=== PATIENT | male | born 1985 | race Caucasian/White ===

== ENCOUNTER 2017-11-21 19:35 | Emergency (ER) | payer OTHER ==
[~2017-11-21] VITALS: Ht 167.6 cm; Wt 79.8 kg
[2017-11-21 19:39] VITALS: Ht 167.6 cm; Wt 79.8 kg
[2017-11-21 21:10] VITALS: BP 122/66
== END 2017-11-21 21:10 | disposition home or self-care (01) ==
LOC: ED 19:35
DX: S60.562A Insect bite (nonvenomous) of left hand, initial encounter (principal); W57.XXXA Bitten or stung by nonvenomous insect and other nonvenomous arthropods, initial encounter; Y93.89 Activity, other specified; Y92.89 Other specified places as the place of occurrence of the external cause; Y99.8 Other external cause status